=== PATIENT | female | born 2000 | race Caucasian/White ===

== ENCOUNTER 2023-01-28 18:43 | Outpatient (REF) | payer BC, OTHER, SELFPAY ==
--- NOTE | ~2023-01-28 | MR_ITS ---
EXAMINATION: MR CERVICAL SPINE WITHOUT CONTRAST CLINICAL INFORMATION: Cervicalgia. COMPARISON: None available. TECHNIQUE: MRI of the cervical spine was performed using routine sequences without contrast. FINDINGS: The cervical vertebral bodies maintain normal heights and alignment. There is mild to moderate disc height loss at C4-C5 and C5-C6. No bone marrow edema is seen. The cervical cord signal appears normal. The imaged intracranial contents and extraspinal soft tissues appear normal. SPINAL LEVELS: C2-C3: No posterior disc abnormality. No spinal canal or neural foraminal stenosis. C3-C4: No posterior disc abnormality. No spinal canal or neural foraminal stenosis. C4-C5: Mild disc bulging with right uncovertebral hypertrophy. Mild right neural foraminal stenosis. No spinal canal stenosis. C5-C6: Mild disc bulging with central protrusion and mild uncovertebral hypertrophy. No spinal canal or neural foraminal stenosis. C6-C7: No posterior disc abnormality. No spinal canal or neural foraminal stenosis. C7-T1: No posterior disc abnormality. No spinal canal or neural foraminal stenosis. MR/MR cervical spine wo con IMPRESSION: Mild degenerative spondylosis without significant narrowing of the spinal canal or neural foramina. Mild to moderate disc height loss seen at C4-C5 and C5-C6.
== END 2023-01-28 18:44 | disposition home or self-care (01) ==
LOC: HO.MRI 18:43
PROVIDERS: Visit Provider Family Medicine
DX: M54.2 Cervicalgia (principal)
CPT/HCPCS: 72141